=== PATIENT | male | born 1950 | race Caucasian/White ===

== ENCOUNTER 2020-08-07 11:38 | Day surgery (SDC) | payer BC ==
[2020-08-06 11:57] LABS: BASOPHILS % (AUTO) 1 % (0-1); EOSINOPHILS % (AUTO) 3 % (1-7); LYMPHOCYTES % (AUTO) 32 % (22-44); MEAN CORPUSCULAR HGB CONC 34.6 g/dL (33.2-36.2); MEAN PLATELET VOLUME 8.3 fL (7.4-10.4); MONOCYTES % (AUTO) 9 % (2-9); NEUTROPHILS % (AUTO) 56 % (42-75); PLATELET COUNT 201 x10^3/uL (130-400); RED BLOOD COUNT 4.47 x10^6/uL (4.38-5.82); RED CELL DISTRIBUTION WIDTH 14.4 % (9.4-14.8)
[2020-08-06 11:58] LABS: MD NO
[2020-08-06 12:09] LABS: CHLORIDE 103 mmol/L (98-107)
[2020-08-06 12:17] LABS: ALANINE AMINOTRANSFERASE 27 U/L (12-78); ALBUMIN 3.8 g/dL (3.4-5.0); ALKALINE PHOSPHATASE 65 U/L (45-117); ANION GAP 9 mmol/L (5-15); BILIRUBIN,TOTAL 0.6 mg/dL (0.2-1.0); CREATININE 0.73 mg/dL (0.7-1.3); TOTAL PROTEIN 7.5 g/dL (6.4-8.2)
[~2020-08-07] VITALS: Ht 172.7 cm; Wt 132.4 kg
[~2020-08-07 11:38] MED LIST: ACET-1600 PO; AMLO-150 PO; ATOR40TA78 PO; CARV6.2512 PO; CYAN100072 PO; DULA1.5P INJ; GABA300C PO; GLYB5TAB3 PO; HYDR25TA6 PO; LEVO50TA PO; PANT40TA6 PO; PHEN300C4 PO; SERT100T32 PO; SPIR25TA5 PO; TAMS-11 PO; TIOT4MIS3 INH; TRAM-47 PO; VALS320T2 PO; VISIPAQUE 270 MG/ML, 50ML BOTTLE ONE
[2020-08-07] MEDS ORDERED: LACTATED RINGERS 1,000 ML IV SCH (12:30)
[2020-08-07 12:59] VITALS: BP 118/77
[2020-08-07] MEDS ORDERED: HEPARIN 1,000 UNITS/ML, 10ML ONE (14:21)
[2020-08-07] MEDS ORDERED: MIDAZOLAM 1 MG/ML, 5ML ONE (14:21)
[2020-08-07] MEDS ORDERED: FLUMAZENIL 0.1 MG/1 ML, 5ML ONE (14:21)
[2020-08-07] MEDS ORDERED: FENTANYL PF 100 MCG/2ML ONE (14:21)
[2020-08-07] MEDS ORDERED: NALOXONE 1 MG/ML, 2ML ONE (14:22)
[2020-08-07] MEDS ORDERED: PROTAMINE SULFATE 10 MG/ML, 25ML ONE (14:22)
[2020-08-07] MEDS ORDERED: CLOPIDOGREL 75 MG TABLET PO ONE (17:00)
[2020-08-07] MEDS ORDERED: SODIUM CHLORIDE 0.9% 1,000 ML IV SCH (17:00)
[2020-08-07] MEDS ORDERED: ONDANSETRON 2MG/ML, 2ML IVPush PRN (17:00)
[2020-08-08] MEDS ORDERED: ASPIRIN 81 MG TABLET EC PO SCH (09:00)
== END 2020-08-07 18:45 | disposition home or self-care (01) ==
LOC: RAD 11:38
PROVIDERS: ATTEND Surgery
DX: I70.221 Atherosclerosis of native arteries of extremities with rest pain, right leg (principal); I70.212 Atherosclerosis of native arteries of extremities with intermittent claudication, left leg; I10 Essential (primary) hypertension; J44.9 Chronic obstructive pulmonary disease, unspecified; E11.9 Type 2 diabetes mellitus without complications; E03.9 Hypothyroidism, unspecified; E66.01 Morbid (severe) obesity due to excess calories; Z68.41 Body mass index [BMI] 40.0-44.9, adult; Z79.84 Long term (current) use of oral hypoglycemic drugs; Z79.891 Long term (current) use of opiate analgesic; Z79.899 Other long term (current) drug therapy; Z87.891 Personal history of nicotine dependence; Z98.890 Other specified postprocedural states; Z99.81 Dependence on supplemental oxygen; Z83.3 Family history of diabetes mellitus; Z82.3 Family history of stroke
CPT/HCPCS: 36415; 37221; 75716; 80053; 82962; 85025; C1725; C1751; C1760; C1769; C1874; C1876; C1894; J1644; J2250; J3010; J7120; Q9966; 75710; J2720; J2310